=== PATIENT | female | born 1995 | race African-American/Black ===

== ENCOUNTER 2020-09-29 09:08 | Outpatient (REF) | payer OTHER, SELFPAY ==
[2020-09-30 09:47] LABS: CT PCR NOT DETECTED (Not Detect.); NG PCR NOT DETECTED (Not Detect.)
[2020-09-30 13:52] LABS: BV Int Neg Control Negative (Negative); BV Int Pos Control Positive (Positive)
== END 2020-09-29 09:09 | disposition home or self-care (01) ==
LOC: HO.LAB 09:08
PROVIDERS: Visit Provider Obstetrics & Gynecology
DX: Z01.419 Encounter for gynecological examination (general) (routine) without abnormal findings (principal); Z11.3 Encounter for screening for infections with a predominantly sexual mode of transmission; Z11.8 Encounter for screening for other infectious and parasitic diseases
CPT/HCPCS: 87480; 87491; 87510; 87591; 87660

== ENCOUNTER 2021-04-07 15:01 | Outpatient (REF) | payer OTHER, SELFPAY ==
[2021-04-07 15:27] LABS: COVID-19 Test Negative (Negative)
== END 2021-04-07 15:02 | disposition home or self-care (01) ==
LOC: HO.LAB 15:01
PROVIDERS: PCP Pediatrics; Visit Provider Internal Medicine
DX: Z20.822 Contact with and (suspected) exposure to COVID-19 (principal)
CPT/HCPCS: 36415; 87635; C9803

== ENCOUNTER → 2021-08-04 10:25 | Outpatient (BNVA) | payer OTHER, SELFPAY | PROVIDERS: Visit Provider Advanced Practice Midwife ==

== ENCOUNTER 2022-06-14 14:54 | Outpatient (REF) | payer OTHER, SELFPAY ==
[2022-06-15 05:19] LABS: CT PCR NOT DETECTED (Not Detect.); NG PCR NOT DETECTED (Not Detect.)
[2022-06-15 12:55] LABS: BV Int Neg Control Negative (Negative); BV Int Pos Control Positive (Positive)
== END 2022-06-14 14:55 | disposition home or self-care (01) ==
LOC: HO.LAB 14:54
PROVIDERS: Visit Provider Advanced Practice Midwife
DX: Z01.419 Encounter for gynecological examination (general) (routine) without abnormal findings (principal); Z20.2 Contact with and (suspected) exposure to infections with a predominantly sexual mode of transmission
CPT/HCPCS: 87480; 87491; 87510; 87591; 87660; 88142

== ENCOUNTER 2022-07-29 15:05 | Outpatient (REF) | payer OTHER, SELFPAY ==
[2022-07-29 16:00] LABS: HCG Quantitative 12907 mIU/mL
[2022-07-30 07:34] LABS: HBsAGNum1 0.24 S/CO (0.00-0.99); HIV Num 1 3.07 S/CO (0.00-0.99); Hepatitis B Surface Antigen Negative (Negative); ~Hepatitis C Antibody Nonreactive (Nonreactive)
[2022-07-30 08:19] LABS: Syphilis Screen Nonreactive (Nonreactive)
[2022-07-30 08:51] LABS: HIV Num 2 0.07 S/CO
[2022-07-30 08:52] LABS: HIV AB/AG Nonreactive (Nonreactive); HIV Num 3 0.09 S/CO
== END 2022-07-29 15:06 | disposition home or self-care (01) ==
LOC: HO.LAB 15:05
PROVIDERS: PCP Internal Medicine; Visit Provider Advanced Practice Midwife
DX: Z30.09 Encounter for other general counseling and advice on contraception (principal); Z20.2 Contact with and (suspected) exposure to infections with a predominantly sexual mode of transmission
CPT/HCPCS: 36415; 84702; 86780; 86803; 87340; 87389